=== PATIENT | female | born 1975 ===

== ENCOUNTER 2024-03-10 12:50 | Outpatient (AMB) | payer OTHER, SELFPAY ==
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
[2024-03-10 13:02] VITALS: BP 141/63; PULSE 77; RESP 16; O2SAT 97; BMI 25.5
== END 2024-03-10 13:49 | disposition home or self-care (01) ==
PROVIDERS: PCP Family Medicine; Visit Provider Nurse Practitioner Family
DX: M47.812 Spondylosis without myelopathy or radiculopathy, cervical region (principal); M54.12 Radiculopathy, cervical region; M48.02 Spinal stenosis, cervical region; M62.838 Other muscle spasm; M54.50 Low back pain, unspecified; G89.29 Other chronic pain; Z87.828 Personal history of other (healed) physical injury and trauma
CPT/HCPCS: 99204; G2211

== ENCOUNTER → 2024-03-10 12:50 | Outpatient (BNVA) | payer OTHER, SELFPAY | PROVIDERS: PCP Family Medicine; Visit Provider Nurse Practitioner Family | DX: M47.22 Other spondylosis with radiculopathy, cervical region (principal); M48.02 Spinal stenosis, cervical region; M54.50 Low back pain, unspecified; G89.29 Other chronic pain; M25.511 Pain in right shoulder; M25.512 Pain in left shoulder; M25.551 Pain in right hip; M25.561 Pain in right knee; M62.838 Other muscle spasm; Z87.828 Personal history of other (healed) physical injury and trauma | CPT/HCPCS: 99202 ==

== ENCOUNTER 2025-01-03 12:54 | Outpatient (AMB) | payer OTHER, SELFPAY ==
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
[2025-01-03 13:10] VITALS: BP 100/56; PULSE 69; O2SAT 98; BMI 22.6
== END 2025-01-03 13:35 | disposition home or self-care (01) ==
LOC: HO.PMC 12:55
PROVIDERS: PCP Family Medicine; Visit Provider Nurse Practitioner Family
DX: M47.812 Spondylosis without myelopathy or radiculopathy, cervical region (principal); M54.12 Radiculopathy, cervical region; M48.02 Spinal stenosis, cervical region; M62.838 Other muscle spasm; M54.50 Low back pain, unspecified; G89.29 Other chronic pain; S82.891A Other fracture of right lower leg, initial encounter for closed fracture
CPT/HCPCS: 99214; G2211

== ENCOUNTER → 2025-01-03 12:54 | Outpatient (BNVA) | payer OTHER, SELFPAY | PROVIDERS: PCP Family Medicine; Visit Provider Nurse Practitioner Family | DX: M47.812 Spondylosis without myelopathy or radiculopathy, cervical region (principal); M54.12 Radiculopathy, cervical region; M48.02 Spinal stenosis, cervical region; M62.838 Other muscle spasm; M54.50 Low back pain, unspecified; G89.29 Other chronic pain; S82.891A Other fracture of right lower leg, initial encounter for closed fracture; X58.XXXA Exposure to other specified factors, initial encounter | CPT/HCPCS: 99212 ==